=== PATIENT | female | born 1985 | race Caucasian/White ===

== ENCOUNTER 2019-06-05 13:20 | Inpatient (IN) | payer BC ==
[~2019-06-05] VITALS: Ht 152.4 cm; Wt 75.0 kg
[2019-06-07] MEDS ORDERED: OXYTOCIN 30U/ 0.9% NaCL 500ML 500 ML IV ONE (03:15)
[2019-06-07] MEDS ORDERED: OXYTOCIN 30U/ 0.9% NaCL 500ML 500 ML IV PRN ×2 (03:15→09:55)
[2019-06-07 03:19] VITALS: BP 138/84
[2019-06-07] MEDS ORDERED: FENTANYL/BUPIV./NS/PF 250 ML EPIDCONT SCH ×2 (03:21→04:03)
[2019-06-07] MEDS ORDERED: TERBUTALINE 1 MG/ML, 1ML IVPush PRN (03:30)
[2019-06-07] MEDS ORDERED: FENTANYL PF 100 MCG/2ML IVPush PRN (03:30)
[2019-06-07] MEDS ORDERED: TERBUTALINE 1 MG/ML, 1ML SQ PRN (03:30)
[2019-06-07] MEDS ORDERED: SODIUM CITRATE/CITRIC ACID 30 ML UDC PO PRN (03:30)
[2019-06-07] MEDS ORDERED: FENTANYL PF 100 MCG/2ML IV PRN (03:30)
[2019-06-07] MEDS ORDERED: METOCLOPRAMIDE 5 MG/ML, 2ML IVPush PRN (03:30)
[2019-06-07 03:31] VITALS: BP 138/84
[2019-06-07 03:39] LABS: BASOPHILS # (AUTO) 0.04 x10^3/uL (0-0.1); BASOPHILS % (AUTO) 0 % (0-1); EOSINOPHILS # (AUTO) 0.25 x10^3/uL (0-0.4); EOSINOPHILS % (AUTO) 2 % (1-7); LYMPHOCYTES # (AUTO) 1.73 x10^3/uL (1-3.4); LYMPHOCYTES % (AUTO) 15 % (22-44); MD NO; MEAN CORPUSCULAR HEMOGLOBIN 32.3 pg (27.0-34.8); MEAN CORPUSCULAR HGB CONC 33.9 g/dL (32.4-35.8); MEAN CORPUSCULAR VOLUME 95.1 fL (80-100); MEAN PLATELET VOLUME 8.7 fL (7.4-10.4); MONOCYTES # (AUTO) 1.11 x10^3/uL (0.2-0.8); MONOCYTES % (AUTO) 10 % (2-9); NEUTROPHILS # (AUTO) 8.52 x10^3/uL (1.8-6.8); NEUTROPHILS % (AUTO) 73 % (42-75); PLATELET COUNT 165 x10^3/uL (130-400); RED BLOOD COUNT 4.12 x10^6/uL (3.82-5.3); RED CELL DISTRIBUTION WIDTH 13.6 % (9.6-15.2)
[2019-06-07] MEDS ORDERED: LACTATED RINGERS 1,000 ML IV SCH (03:39)
[2019-06-07] MEDS ORDERED: D5%-LACTATED RINGERS 1,000 ML IV SCH (03:39)
[2019-06-07] MEDS ORDERED: LIDOCAINE 1%, 20ML ONE ×2 (03:43)
[2019-06-07] MEDS ORDERED: NEWBORN KIT ONE (03:43)
[2019-06-07] MEDS ORDERED: MISOPROSTOL 200 MCG TABLET ONE (03:43)
[2019-06-07] MEDS ORDERED: OXYTOCIN 30U/ 0.9% NaCL 500ML 500 ML ONE (03:43)
[2019-06-07] MEDS ORDERED: SODIUM CHLORIDE FLUSH 10ML SYR IVF PRN (04:00)
[2019-06-07] MEDS ORDERED: BUPIVACAINE 0.25% ONE (04:04)
[2019-06-07] MEDS ORDERED: BUPIVACAINE/PF 0.25% ONE (04:09)
[2019-06-07] MEDS ORDERED: FENTANYL/BUPIV./NS/PF 250 ML EPIDCONT ONE (04:09)
[2019-06-07] MEDS ORDERED: EPHEDRINE 50 MG/ML, 1ML IVPush PRN (04:30)
[2019-06-07] MEDS ORDERED: LACTATED RINGERS 1,000 ML IVBOLUS PRN (04:30)
[2019-06-07] MEDS ORDERED: NALOXONE 0.4 MG/ML, 1ML IVPush PRN (04:30)
[2019-06-07] MEDS ORDERED: TERBUTALINE 1 MG/ML, 1ML ONE (07:20)
[2019-06-07] MEDS ORDERED: LIDOCAINE/MPF 2%-EPI 1:200K, 20 ML ONE (07:26)
[2019-06-07] MEDS: LACTATED RINGERS 1,000 ML IV SCH ×3 (07:28→20:03)
[2019-06-07] MEDS ORDERED: ACETAMINOPHEN 325 MG TABLET ONE (08:04)
[2019-06-07] MEDS ORDERED: ACETAMINOPHEN 325 MG TABLET PO PRN ×2 (08:30→11:30)
[2019-06-07] MEDS ORDERED: CEFAZOLIN PMX 2GM/50ML 50 ML IVPB ONE ×2 (11:00→23:00)
[2019-06-07] MEDS: OXYTOCIN 30U/ 0.9% NaCL 500ML 500 ML IV SCH ×2 (11:01→21:01)
[2019-06-07] MEDS ORDERED: OXYcodone/APAP 5/325MG TABLET PO PRN (11:30)
[2019-06-07] MEDS ORDERED: OXYcodone IR 5MG TABLET PO PRN (11:30)
[2019-06-07] MEDS ORDERED: METHYLERGONOVINE 0.2 MG/ML IM PRN (11:30)
[2019-06-07] MEDS ORDERED: SIMETHICONE 80 MG CHEW TAB PO PRN (11:30)
[2019-06-07] MEDS ORDERED: ONDANSETRON 2MG/ML, 2ML IV PRN (11:30)
[2019-06-07] MEDS ORDERED: CARBOPROST TROMETHAMINE 250 MCG/ML, 1ML IM PRN (11:30)
[2019-06-07] MEDS ORDERED: DOCUSATE 100 MG CAPSULE PO PRN (11:30)
[2019-06-07] MEDS ORDERED: MISOPROSTOL 200 MCG TABLET SL PRN (11:30)
[2019-06-07 13:20] VITALS: BP 128/78
[2019-06-07 15:48] VITALS: BP 127/78
[2019-06-07] MEDS: IBUPROFEN 600 MG TABLET PO PRN (19:32)
[2019-06-07 20:00] VITALS: BP 130/83
[2019-06-08] VITALS: BP 119/75
[2019-06-08 04:00] VITALS: BP 128/72
[2019-06-08] MEDS: LACTATED RINGERS 1,000 ML IV SCH (04:03)
[2019-06-08] MEDS: IBUPROFEN 600 MG TABLET PO PRN ×2 (04:16→11:18)
[2019-06-08 07:41] VITALS: BP 130/77
[2019-06-08] MEDS ORDERED: PRENATAL VIT/IRON/FA 1 EACH TABLET PO SCH (09:00)
[2019-06-08 10:25] LABS: MEAN CORPUSCULAR HEMOGLOBIN 32.2 pg (27.0-34.8); MEAN CORPUSCULAR VOLUME 97.6 fL (80-100); MEAN PLATELET VOLUME 8.9 fL (7.4-10.4); PLATELET COUNT 139 x10^3/uL (130-400); RED BLOOD COUNT 3.24 x10^6/uL (3.82-5.3)
[2019-06-08] MEDS ORDERED: CEFAZOLIN PMX 2GM/50ML 50 ML IVPB ONE (10:30)
[2019-06-08 10:45] LABS: BASOPHILS # (AUTO) 0.04 x10^3/uL (0-0.1); BASOPHILS % (AUTO) 0 % (0-1); EOSINOPHILS # (AUTO) 0.09 x10^3/uL (0-0.4); EOSINOPHILS % (AUTO) 1 % (1-7); LYMPHOCYTES # (AUTO) 1.73 x10^3/uL (1-3.4); LYMPHOCYTES % (AUTO) 12 % (22-44); MD SCAN; MONOCYTES # (AUTO) 1.12 x10^3/uL (0.2-0.8); MONOCYTES % (AUTO) 8 % (2-9); NEUTROPHILS # (AUTO) 11.47 x10^3/uL (1.8-6.8); NEUTROPHILS % (AUTO) 79 % (42-75)
[2019-06-08 12:30] VITALS: BP 132/81
[2019-06-08 16:30] VITALS: BP 130/87
[2019-06-08] MEDS ORDERED: DOCU-131 PO (17:58)
[2019-06-08] MEDS ORDERED: IBUP-1222 PO (17:58)
== END 2019-06-08 19:39 | disposition home or self-care (01) | DRG 807 ==
LOC: LDIP 06-07 03:01 → 2NW 06-07 13:17
PROVIDERS: ADMIT Obstetrics & Gynecology; ATTEND Obstetrics & Gynecology
PROC: 10E0XZZ Delivery of Products of Conception, External Approach (ICD-10-PCS; principal; 2019-06-07)
PROC: 0KQM0ZZ Repair Perineum Muscle, Open Approach (ICD-10-PCS; 2019-06-07)
PROC: 3E033VJ Introduction of Other Hormone into Peripheral Vein, Percutaneous Approach (ICD-10-PCS; 2019-06-07)
PROC: 3E0R3BZ Introduction of Anesthetic Agent into Spinal Canal, Percutaneous Approach (ICD-10-PCS; 2019-06-07)
PROC: 00HU33Z Insertion of Infusion Device into Spinal Canal, Percutaneous Approach (ICD-10-PCS; 2019-06-07)
DX: O77.0 Labor and delivery complicated by meconium in amniotic fluid (principal); Z37.0 Single live birth; O69.81X0 Labor and delivery complicated by cord around neck, without compression, not applicable or unspecified; Z3A.40 40 weeks gestation of pregnancy; O70.1 Second degree perineal laceration during delivery
CPT/HCPCS: 36415; 82803; 84443; 85025; 86592; 86850; 86900; 87040; 87070; 87075; 87086; 87205; G0378; J0690; J3490; J3010; J7120